=== PATIENT | male | born 2005 | race Caucasian/White ===

== ENCOUNTER 2024-02-06 16:42 | Emergency (ER) | payer MEDICAID ==
[~2024-02-06] VITALS: Ht 175.3 cm; Wt 85.0 kg
[2024-02-06 16:52] VITALS: O2SAT 100
[2024-02-06] MEDS: TETANUS, DIPHTHERIA, PERTUSSIS VAC/PF 0.5ML (>10YR OLD) IM ONE (17:00)
[2024-02-06 17:30] VITALS: BP 140/78; PULSE 92; RESP 23; TEMP 98
[2024-02-09] MEDS ORDERED: IOHEXOL-300 100 ML BOTTLE ONE (12:12)
== END 2024-02-06 18:23 | disposition home or self-care (01) ==
LOC: ER 17:23
DX: S41.032A Puncture wound without foreign body of left shoulder, initial encounter (principal); W34.00XA Accidental discharge from unspecified firearms or gun, initial encounter; Y93.89 Activity, other specified; Y92.89 Other specified places as the place of occurrence of the external cause; Y99.8 Other external cause status
CPT/HCPCS: 73020; 71260; 90715; 90471; 99285; Z7610; 99281